=== PATIENT | female | born 1930 | race Caucasian/White ===

== ENCOUNTER 2017-06-23 17:54 | Emergency (ER) | payer OTHER, MEDICARE ==
[2017-06-23 18:05] VITALS: PULSE 69; TEMP 97.5; BMI 32.1
[2017-06-23 18:45] LABS: BASOPHIL 0.8 % (0-2.0); MCH 31.6 pg (25.7-33.7); MEAN CELL VOLUME 93.1 fl (80-96); NEUTROPHILS 70.6 % (42.8-82.8); PLATELET COUNT 150 K/MM3 (134-434); WHITE BLOOD COUNT 5.2 K/mm3 (4.0-10.0)
--- NOTE | 2017-06-23 18:55 | PDOC ---
History of Present Illness - General Chief Complaint: Blood Pressure Problem Stated Complaint: BP PROBLEM Time Seen by Provider: 06/23/17 18:01 History Source: Patient Exam Limitations: No Limitations - History of Present Illness Initial Comments: 86yo F with PMH of htn, hypercholesterolemia, MVP, presents c/o elevated blood pressure. Pt is active, and was out bowling today. Pt ate ham and cheese on her salad for lunch today, and possibly attributes her elevated blood pressure to this unusual salt intake. Pt c/o feeling thirsty, nauseous (sans vomiting), weak, and dizzy when leaning forward. These symptoms began at 1:30 this afternoon when her blood pressure measured 153/90. Pt called her PCP (Dr. Ureña) who told her to take her prn medication Toprol. Pt continued to monitor her blood pressure: 166/97 at 4:35pm and 187/101 at 5:15pm prompting her to come to the ER. Pt was admitted for similar symptoms in December 2014. Pt now c/o of a burning sensation, intrathoracic inferior to Right breast. PCP: Dr. Tierra Ureña 06/23/17 18:48 Associated Symptoms: reports: chest pain, nausea/vomiting, weakness. denies: cough, diaphoresis, fever/chills, headaches, rash, shortness of breath, syncope Past History - Past Medical History Allergies/Adverse Reactions: Allergies Allergy/AdvReac Type Severity Reaction Status Date / Time levofloxacin [From Levaquin] Allergy Severe Hives Verified 06/23/17 18:05 meperidine HCl [From Demerol] Allergy Severe Hives Verified 06/23/17 18:05 Sulfa (Sulfonamide Allergy Severe Hives Verified 06/23/17 18:05 Antibiotics) [Sulfa(Sulfonamide Antibiotics)] Home Medications: Ambulatory Orders Psyllium Seed [Metamucil] 1 each PO BID #0 packet 07/17/12 Atorvastatin Calcium [Lipitor] 10 mg PO DAILY 09/04/12 Ca Cmb No.1/Vit D3/B-6/FA/B12 [Vitamin D3 1,000 Unit Tablet] 1 each PO DAILY 12/12 Multivitamin [Multivitamins] 1 each PO DAILY 09/04/12 Brimonidine Tartrate/Timolol [Combigan 0.2%-0.5% Eye Drops] 1 gtt OU HS #0 04/ 03/15 Losartan Potassium [Cozaar -] 100 mg PO DAILY #0 01/03/15 Losartan Potassium [Cozaar -] 100 mg PO DAILY #30 tablet 01/03/15 Anemia: No Asthma: No Cancer: No Cardiac Disorders: Yes (MVP) CVA: No COPD: No CHF: No Dementia: No Diabetes: No GI Disorders: Yes (HX.COLON POLYPS) Disorders: No HTN: Yes Hypercholesterolemia: Yes Liver Disease: No Seizures: No Thyroid Disease: No Other medical history: arthritis, thrombocytopenia, glaucoma - Surgical History Abdominal Surgery: No Appendectomy: No Cardiac Surgery: No Cholecystectomy: No Lung Surgery: No Neurologic Surgery: No Orthopedic Surgery: No - Immunization History Immunization Up to Date: Yes - Suicide/Smoking/Psychosocial Hx Smoking History: Never smoked Have you smoked in the past 12 months: No Information on smoking cessation initiated: No Hx Alcohol Use: No Drug/Substance Use Hx: No Substance Use Type: None Hx Substance Use Treatment: No Review of Systems - Review of Systems Constitutional: Yes: Chills. No: Diaphoresis, Fever HEENTM: No: Recent change in vision, Ear Pain, Nose Pain, Nose Congestion, Throat Pain Respiratory: No: Cough, Shortness of Breath, Stridor, Wheezing, Productive cough , Hemoptysis Cardiac (ROS): Yes: Chest Pain (burning sensation, intrathoracic inferior to Right breast). No: Edema, Irregular Heart Rate, Palpitations, Syncope, Chest Tightness ABD/GI: Yes: Nausea. No: Abdominal Distended, Constipated, Diarrhea, Vomiting, Abdominal cramping : No: Burning, Dysuria, Hematuria Musculoskeletal: Yes: Joint Pain (arthritis). No: Neck Pain Integumentary: No: Erythema, Pallor, Rash Neurological: Yes: Weakness, Dizziness (when leaning forward). No: Headache, Numbness, Paresthesia Hematologic/Lymphatic: No: Easy Bleeding, Easy Bruising *Physical Exam - Vital Signs Last Vital Signs Temp Pulse Resp BP Pulse Ox 97.5 F L 69 18 168/78 98 06/23/17 18:03 06/23/17 18:03 06/23/17 18:03 06/23/17 18:03 06/23/17 18:03 - Physical Exam General Appearance: Yes: Nourished, Appropriately Dressed. No: Apparent Distress HEENT: positive: EOMI, Other (moist mucous membranes). negative: Pale Conjunctivae, Scleral Icterus (R), Scleral Icterus (L), Nasal Congestion, Rhinorrhea Neck: positive: Trachea midline, Supple Respiratory/Chest: positive: Lungs Clear, Normal Breath Sounds. negative: Respiratory Distress, Accessory Muscle Use Cardiovascular: positive: Regular Rhythm, Regular Rate, S1, S2. negative: Murmur Gastrointestinal/Abdominal: positive: Soft. negative: Distended, Guarding, Rebound, Tenderness Musculoskeletal: positive: Normal Inspection. negative: Decreased Range of Motion Extremity: positive: Normal Inspection. negative: Swelling, Calf Tenderness, Erythema Integumentary: positive: Normal Color, Dry, Warm Neurologic: positive: Fully Oriented, Alert, Normal Mood/Affect, Normal Response , Motor Strength 02/04 ED Treatment Course - LABORATORY CBC & Chemistry Diagram: 06/23/17 18:40 06/23/17 18:40 - ADDITIONAL ORDERS Additional order review: 06/23/17 18:40 RBC 4.04 MCV 93.1 MCHC 34.0 RDW 14.0 MPV 8.0 Neutrophils % 70.6 D Lymphocytes % 20.0 D Monocytes % 6.6 Eosinophils % 2.0 Basophils % 0.8 Medical Decision Making - Medical Decision Making 86yo F with PMH of htn, hypercholesterolemia, MVP, presents c/o elevated blood pressure. Other pertinent symptoms: nausea, weakness, dizziness when leaning forward, burning sensation in Right lower chest. Physical exam unremarkable. CBC with diff, CMP, troponin, INR EKG 06/23/17 19:08 06/23/17 19:26 EKG -> NSR CBC with diff -> wnl CMP -> unremarkable troponin (-) INR/PT -> wnl Heart Score = 3. 06/23/17 22:05 2nd trop (-) Blood pressure 130/79. Pt feeling better and can go home. *DC/Admit/Observation/Transfer Diagnosis at time of Disposition: Dizziness, Hypertension, Nausea - Discharge Dispostion Disposition: HOME Condition at time of disposition: Improved Admit: No - Referrals Referrals: Tierra Ureña MD [Primary Care Provider] - - Patient Instructions Printed Discharge Instructions: DI for High Blood Pressure Additional Instructions: Please follow-up with Dr. Ureña to adjust your blood pressure medications to work for you. Please return to the hospital for persistent or worsening dizziness, lightheadedness, nausea, or for any other medical emergency (such as chest pain , palpitations, difficulty breathing).
[2017-06-23 19:11] LABS: ALBUMIN 3.7 g/dl (3.4-5.0); ANION GAP 11 (8-16); CALCIUM 9.3 mg/dL (8.5-10.1); CO2 24 mmol/L (21-32); CREATININE 0.9 mg/dL (0.55-1.02); GLUCOSE,RANDOM 109 mg/dL (74-106); SGOT/AST 18 U/L (15-37); SGPT/ALT 21 U/L (12-78)
[2017-06-23 19:16] LABS: ALK PHOS 75 U/L (45-117); BILIRUBIN,TOTAL 0.7 mg/dL (0.2-1.0); CPK 75 IU/L (26-192); TOT PROT 6.6 g/dl (6.4-8.2); TROPONIN I < 0.02 ng/ml (0.00-0.05)
[2017-06-23] MEDS ORDERED: FAMOTIDINE 20 MG/50 ML IVPB 50 ML IVPB ONE ×2 (20:12→20:26)
--- NOTE | 2017-06-23 20:14 | PDOC ---
Attending Attestation - Resident Resident Name: BhardwajNiranjana - ED Attending Attestation I have performed the following: I have examined & evaluated the patient, The case was reviewed & discussed with the resident, I agree w/resident's findings & plan, Exceptions are as noted - HPI HPI: 06/23/17 20:10 86 F with h/o HTN on losartan and toprol PRN presents to ER with elevated BP. Pt states that she began to feel a little lightheaded this afternoon, which often occurs in the context of elevated BP. Pt checked her BP and found it to be around 160 systolic. She called her PMD, who instructed her to take her PRN toprol, which she took. When she rechecked it, she found it to be higher at 180 systolic, so she decided to come to the ER. Pt denies any chest pain/SOB. She states that her lightheadedness occurs intermittently and is often an indicator that her BP is high. Denies room-spinning sensation. Denies weakness/numbness/ tingling. Denies MARQUEZ/N/V. Pt endorses mild epigastric burning that she states started about 2 hours ago. Denies diarrhea/constipation. Denies F/C. - Physicial Exam PE: 06/23/17 20:12 "GENERAL: Awake, alert, and fully oriented, in no acute distress HEAD: No signs of trauma EYES: PERRLA, EOMI, sclera anicteric, conjunctiva clear ENT: Auricles normal inspection, hearing grossly normal, nares patent, oropharynx clear without exudates. Moist mucosa NECK: Nontender, no stepoffs, Normal ROM, supple, no lymphadenopathy, JVD, or masses LUNGS: Breath sounds equal, clear to auscultation bilaterally. No wheezes, and no crackles HEART: Regular rate and rhythm, normal S1 and S2, no murmurs, rubs or gallops ABDOMEN: Soft, nontender, normoactive bowel sounds. No guarding, no rebound. No masses EXTREMITIES: Normal range of motion, no edema. No clubbing or cyanosis. No cords, erythema, or tenderness NEUROLOGICAL: Cranial nerves II through XII intact. 5/5 strength and sensation in all extremities, Normal speech, normal gait, cerebellar tests normal SKIN: Warm, Dry, normal turgor, no rashes or lesions noted. " - Medical Decision Making 06/23/17 20:13 86 F with lightheadedness and elevated BP. BP in ER now 150s systolic. Pt with non-focal neuro exam, making acute stroke unlikely. Pt with normal EKG, making ACS unlikely. Given epigastric burning, will cycle trops given pt's age. - Labs, trop - pepcid - reassess 06/23/17 22:30 Labs negative, trop negative x2 Orthostatics taken, 130 systolic lying down, 150 systolic standing. Pt with resolution of lightheadedness. BP now wnl. Pt ambulatory with stable gait, asymptomatic. Pt stable for DC. Heart Score/ECG Review - History History: Slightly suspicious - Electrocardiogram EKG: Normal - Age Age: >/= 65 - Risk Factors Risk Factors Heart Score: Yes Hx Hypertension Based on the list above the patient has:: 1-2 risk factors - Troponin Troponin: </= normal limit - Score Heart Score - Total: 3 - ECG Impressions Comment:: 06/23/17 20:14 NSR, no YURIDIA/STDs, no TWIs, normal intervals, normal axis
[2017-06-23] MEDS ORDERED: SODIUM CHLORIDE 500 ML IV STA (20:47)
[2017-06-23 21:32] LABS: CPK 93 IU/L (26-192); TROPONIN I < 0.02 ng/ml (0.00-0.05)
[2017-06-23 21:55] VITALS: BP 130/79
--- NOTE | 2017-06-24 09:15 | EKG ---
Test Reason : Blood Pressure : / mmHG Vent. Rate : 060 BPM Atrial Rate : 060 BPM P-R Int : 138 ms QRS Dur : 090 ms QT Int : 428 ms P-R-T Axes : 055 012 050 degrees QTc Int : 428 ms NORMAL SINUS RHYTHM NORMAL ECG WHEN COMPARED WITH ECG OF 23-JUN-2017 19:10, NO SIGNIFICANT CHANGE WAS FOUND Confirmed by LINDA DELGADO MD ([id number]) on 06/24/2017 9:15:07 AM Referred By: Confirmed By:LINDA DELGADO MD
== END 2017-06-23 22:40 | disposition home or self-care (01) ==
LOC: JER 17:54
PROC: 3E0337Z Introduction of Electrolytic and Water Balance Substance into Peripheral Vein, Percutaneous Approach (ICD-10-PCS; principal; 2017-06-23)
PROC: 3E033GC Introduction of Other Therapeutic Substance into Peripheral Vein, Percutaneous Approach (ICD-10-PCS; 2017-06-23)
DX: I10 Essential (primary) hypertension (principal); E78.00 Pure hypercholesterolemia, unspecified
CPT/HCPCS: 36415; 80053; 84484; 85025; 85610; 93005; 93010; 99285-25

== ENCOUNTER → 2018-01-16 | Day surgery (SDC) | payer OTHER, MEDICARE ==
--- NOTE | 2018-01-17 15:35 | PATH ---
Surgical Pathology Report Patient Name: FRANCA LARSON [facility]. Rec. #: [id number] /Age/Gender: 1930 (Age: 87) / F Account: [id number] Location: [facility] Taken: 01/16/2018 Received: 01/16/2018 Reported: 01/17/2018 Physicians: Dean Ruiz M.D. Specimen(s) Received RIGHT 9:30 BREAST CORE BIOPSY Clinical History Nonpalpable lesion Ultrasound findings: Suspicious Final Diagnosis RIGHT BREAST, 9:30, ULTRASOUND GUIDED NEEDLE CORE BIOPSY: FIBROCYSTIC CHANGES INCLUDING STROMAL FIBROSIS AND SCLEROSIS, AND DUCTAL DILATATION. Electronically Signed Rafael Quintana M.D. Gross Description Received in formalin labeled "right 9:30," is a 0.9 x 0.8 x 0.1 cm aggregate of multiple hunt-yellow, irregular to cylindrical portions of fibroadipose tissue. The formalin is filtered and the specimen is entirely submitted in one cassette. Total formalin fixation time: Approximately 8 hours /01/16/2018/01/16/2018
== END | disposition home or self-care (01) ==
LOC: JRADUS-SUR 10:08
PROVIDERS: ATTEND Internal Medicine
PROC: 0HBT3ZX Excision of Right Breast, Percutaneous Approach, Diagnostic (ICD-10-PCS; principal; 2018-01-16)
DX: N60.11 Diffuse cystic mastopathy of right breast (principal); N60.21 Fibroadenosis of right breast
CPT/HCPCS: 19083; 77065-TC; 87899; 88305-TC; A4648

== ENCOUNTER 2018-01-17 20:45 | Emergency (ER) | payer OTHER, MEDICARE ==
[2018-01-17 21:03] VITALS: TEMP 97.2; BMI 24.4
[2018-01-17] MEDS ORDERED: hydrALAZINE HCL 20 MG/ML VIAL IVPUSH ONE (21:11)
--- NOTE | 2018-01-17 21:11 | PDOC ---
History of Present Illness - General History Source: Patient Exam Limitations: No Limitations - History of Present Illness Initial Comments: 01/17/18 21:15 The patient is an 87 year old female with a significant PMH of HTN who presents to the emergency department for evaluation of elevated blood pressure. The patient states she has noticed her blood pressure has been fluctuating more than usual over the past day. She reports she feels fuzzy. She reports calling the on-call doctor Dr. Granger, who informed her to take 100mg of Toprol. She reports compliance with her HTN medications. The patient denies any pain at presentation. She denies chest pain or shortness of breath. She denies headache or dizziness. Denies fever, chills, nausea, vomit, diarrhea and constipation. Denies dysuria, frequency, urgency and hematuria. Allergies: Levofloxacin, Meperidine HCl, Sulfonamide antibiotics. Past surgical history: None reported. Social history: No reported cigarette, alcohol, or drug use. PCP: Dr. Ureña <Jonas Hernandez - Last Filed: 01/17/18 21:15> - General History Source: Patient <Uli Xiong - Last Filed: 01/18/18 01:55> - General Chief Complaint: Blood Pressure Problem Stated Complaint: BP PROBLEM Time Seen by Provider: 01/17/18 21:01 Past History <Jonas Hernandez - Last Filed: 01/17/18 21:15> - Past Medical History Anemia: No Asthma: No Cancer: No Cardiac Disorders: Yes (MVP) CVA: No COPD: No CHF: No Dementia: No Diabetes: No GI Disorders: Yes (HX.COLON POLYPS) Disorders: No HTN: Yes Hypercholesterolemia: Yes Liver Disease: No Seizures: No Thyroid Disease: No - Surgical History Abdominal Surgery: No Appendectomy: No Cardiac Surgery: No Cholecystectomy: No Lung Surgery: No Neurologic Surgery: No Orthopedic Surgery: No - Immunization History Immunization Up to Date: Yes - Suicide/Smoking/Psychosocial Hx Smoking History: Never smoked Have you smoked in the past 12 months: No Information on smoking cessation initiated: No Hx Alcohol Use: No Drug/Substance Use Hx: No Substance Use Type: None Hx Substance Use Treatment: No <Uli Xiong - Last Filed: 01/18/18 01:55> - Past Medical History Allergies/Adverse Reactions: Allergies Allergy/AdvReac Type Severity Reaction Status Date / Time levofloxacin [From Levaquin] Allergy Severe Hives Verified 06/23/17 18:05 meperidine HCl [From Demerol] Allergy Severe Hives Verified 06/23/17 18:05 Sulfa (Sulfonamide Allergy Severe Hives Verified 06/23/17 18:05 Antibiotics) [Sulfa(Sulfonamide Antibiotics)] sulfamethoxazole Allergy Severe Hives Verified 01/17/18 22:19 [From Bactrim] trimethoprim [From Bactrim] Allergy Severe Hives Verified 01/17/18 22:19 Home Medications: Ambulatory Orders Amlodipine Besylate 5 mg PO DAILY 01/17/18 Atorvastatin Ca [Lipitor] 10 mg PO HS 01/17/18 Bimatoprost [Lumigan] 1 drop IO DAILY 01/17/18 Losartan Potassium 100 mg PO DAILY 01/17/18 Meclizine HCl 25 mg PRN 01/17/18 Metoprolol Succinate 25 mg PO PRN 01/17/18 Review of Systems - Review of Systems Able to Perform ROS?: Yes Comments:: 01/17/18 21:15 CONSTITUTIONAL: (+) Fluctuating blood pressure. Absent: fever, chills, diaphoresis, generalized weakness, malaise, loss of appetite HEENT: Absent: rhinorrhea, nasal congestion, throat pain, throat swelling, difficulty swallowing, mouth swelling, ear pain, eye pain, visual Changes CARDIOVASCULAR: Absent: chest pain, syncope, palpitations, irregular heart rate, lightheadedness , peripheral edema RESPIRATORY: Absent: cough, shortness of breath, dyspnea with exertion, orthopnea, wheezing, stridor, hemoptysis GASTROINTESTINAL: Absent: abdominal pain, abdominal distension, nausea, vomiting, diarrhea, constipation, melena, hematochezia GENITOURINARY: Absent: dysuria, frequency, urgency, hesitancy, hematuria, flank pain, genital pain MUSCULOSKELETAL: Absent: myalgia, arthralgia, joint swelling SKIN: Absent: rash, itching, pallor HEMATOLOGIC/IMMUNOLOGIC: Absent: easy bleeding, easy bruising, lymphadenopathy, frequent infections ENDOCRINE: Absent: unexplained weight gain, unexplained weight loss, heat intolerance, cold intolerance NEUROLOGIC: Absent: headache, focal weakness or paresthesias, dizziness, unsteady gait, seizure, mental status changes, bladder or bowel incontinence PSYCHIATRIC: Absent: anxiety, depression, suicidal or homicidal ideation, hallucinations. <Hernandez,Jonas - Last Filed: 01/17/18 21:15> *Physical Exam - Vital Signs Last Vital Signs Temp Pulse Resp BP Pulse Ox 97.2 F L 75 17 164/72 98 01/17/18 20:58 01/17/18 20:58 01/17/18 20:58 01/17/18 20:58 01/17/18 20:58 - Physical Exam Comments: 01/17/18 21:16 GENERAL: Well developed, well nourished. Awake and alert. No acute distress. HEENT: Normocephalic, atraumatic. PERRLA, EOMI. No conjunctival pallor. Sclera are non- icteric. Moist mucous membranes. Oropharynx is clear. NECK: Supple. Full ROM. No JVD. Carotid pulses 2+ and symmetric, without bruits. No thyromegaly. No lymphadenopathy. CARDIOVASCULAR: Regular rate and rhythm. No murmurs, rubs, or gallops. Distal pulses are 2+ and symmetric. PULMONARY: No evidence of respiratory distress. Lungs clear to auscultation bilaterally. No wheezing, rales or rhonchi. ABDOMINAL: Soft. Non-tender. Non-distended. No rebound or guarding. No organomegaly. Normoactive bowel sounds. MUSCULOSKELETAL Normal range of motion at all joints. No bony deformities or tenderness. No CVA tenderness. EXTREMITIES: No cyanosis. No clubbing. No edema. No calf tenderness. SKIN: Warm and dry. Normal capillary refill. No rashes. No jaundice. NEUROLOGICAL: Alert, awake, appropriate. Cranial nerves 2-12 intact. No deficits to light touch and temperature in face, upper extremities and lower extremities. No motor deficits in the in face, upper extremities and lower extremities. Normoreflexic in the upper and lower extremities. Normal speech. Toes are downgoing bilaterally. Gait is normal without ataxia. PSYCHIATRIC: Cooperative. Good eye contact. Appropriate mood and affect. <Jonas Hernandez - Last Filed: 01/17/18 21:15> - Vital Signs Last Vital Signs Temp Pulse Resp BP Pulse Ox 97.2 F L 75 17 164/72 98 01/17/18 20:58 01/17/18 20:58 01/17/18 20:58 01/17/18 20:58 01/17/18 20:58 <Sinisterra,Uli - Last Filed: 01/18/18 01:55> Heart Score/ECG Review #1 01/17/18 21:16 EKG done at 20:53 Vent rate 71 bpm Normal sinus rhythm Possible left atrial enlargement Borderline ECG <Jonas Hernandez - Last Filed: 01/17/18 21:15> ED Treatment Course - LABORATORY CBC & Chemistry Diagram: 01/17/18 21:58 01/17/18 23:25 <Uli Xiong - Last Filed: 01/18/18 01:55> Medical Decision Making - Medical Decision Making 01/18/18 01:53 BP 130/ 70. p[t feeling better. Will discharged and have pt follow up with her. pcp Dr. Xiong: The scribe's documentation has been prepared under my direction and personally reviewed by me in its entirery. I confirm that the note above accurately reflects all work, treatment, procedures, and medical decision making performed by me. <Uli Xiong - Last Filed: 01/18/18 01:55> *DC/Admit/Observation/Transfer - Attestations Scribe Attestion: 01/17/18 21:16 Documentation prepared by Jonas Hernandez, acting as medical interpreter for Uli Xiong DO. <Jonas Hernandez - Last Filed: 01/17/18 21:15> - Discharge Dispostion Admit: No <Uli Xiong - Last Filed: 01/18/18 01:55> Diagnosis at time of Disposition: Hypertension - Discharge Dispostion Disposition: HOME Condition at time of disposition: Stable - Referrals Referrals: Tierra Ureña MD [Primary Care Provider] - - Patient Instructions Printed Discharge Instructions: How to Monitor Your Blood Pressure at Home, DI for High Blood Pressure Additional Instructions: Please follow up with your doctor to discharge how to control your blood pressure better, Retrun if any problems. - Post Discharge Activity
[2018-01-17] MEDS ORDERED: hydrALAZINE HCL 20 MG/ML VIAL ONE (21:39)
[2018-01-17 22:02] LABS: BASO % 0.6 % (0-2.0); EOS % 1.2 % (0-4.5); HEMOGLOBIN 13.7 GM/dL (10.7-15.3); MCH 32.1 pg (25.7-33.7); MCHC 34.3 g/dl (32.0-36.0); MEAN CELL VOLUME 93.5 fl (80-96); MEAN PLT VOLUME 8.2 fl (7.5-11.1); MONO % 5.4 % (3.8-10.2); NEUT % 73.8 % (42.8-82.8); PLATELET COUNT 145 K/MM3 (134-434); RBC 4.28 M/mm3 (3.60-5.2); RDW 14.3 % (11.6-15.6); WHITE BLOOD COUNT 5.7 K/mm3 (4.0-10.0)
[2018-01-17 22:21] LABS: PROTHROMBIN TIME (PATIENT) 11.3 SEC (9.98-11.88)
[2018-01-18 00:35] LABS: ANION GAP 10 (8-16); BILIRUBIN,TOTAL 0.9 mg/dL (0.2-1.0); BLOOD UREA NITROGEN 13 mg/dL (7-18); CALCIUM 9.7 mg/dL (8.5-10.1); CHLORIDE 105 mmol/L (98-107); CO2 24 mmol/L (21-32); CREATININE 0.9 mg/dL (0.55-1.02); GLUCOSE,RANDOM 100 mg/dL (74-106); POTASSIUM 3.7 mmol/L (3.5-5.1); SGOT/AST 20 U/L (15-37); SGPT/ALT 19 U/L (12-78); SODIUM 139 mmol/L (136-145); TOT PROT 7.3 g/dl (6.4-8.2)
[2018-01-18 00:38] LABS: ALK PHOS 88 U/L (45-117)
[2018-01-18 01:56] VITALS: BP 137/77; PULSE 88
--- NOTE | 2018-01-18 11:43 | EKG ---
Test Reason : Blood Pressure : / mmHG Vent. Rate : 071 BPM Atrial Rate : 071 BPM P-R Int : 132 ms QRS Dur : 088 ms QT Int : 398 ms P-R-T Axes : 055 -22 054 degrees QTc Int : 432 ms NORMAL SINUS RHYTHM POSSIBLE LEFT ATRIAL ENLARGEMENT BORDERLINE ECG WHEN COMPARED WITH ECG OF 23-JUN-2017 19:10, NO SIGNIFICANT CHANGE WAS FOUND Confirmed by ELVER BARAJAS, GABE ([id number]) on 01/18/2018 11:42:39 AM Referred By: Confirmed By:GABE RAYA MD
== END 2018-01-18 02:05 | disposition home or self-care (01) ==
LOC: JER 20:45
DX: I10 Essential (primary) hypertension (principal); E78.00 Pure hypercholesterolemia, unspecified; I34.1 Nonrheumatic mitral (valve) prolapse; Z87.19 Personal history of other diseases of the digestive system; Z86.010 Personal history of colon polyps
CPT/HCPCS: 36415; 80053; 82550; 84484; 85025; 85610; 93005; 93010; 99283-25

== ENCOUNTER 2018-02-09 22:01 | Observation (INO) | payer OTHER, MEDICARE ==
[2018-02-09 22:34] VITALS: BMI 26.4
--- NOTE | 2018-02-09 22:41 | PDOC ---
Attending Attestation - HPI HPI: 02/09/18 22:55 The patient is an 87 year old female with a significant PMH of HTN, vertigo, and hyperlipidemia who presents to the emergency department for evaluation of high blood pressure and dizziness. She reports her blood pressure was measured 190/110 prior to arrival. She also notes an episode of dizziness earlier today after walking for about 5-10 minutes, feeling as though she was swaying. She notes this sensation did not feel like previous vertigo. Allergies: Levofloxacin, Meperidine HCl, Sulfonamide antibiotics, Sulfamethoxazole, Trimethoprim. PCP: Dr. Ureña <Jonas Hernandez - Last Filed: 02/09/18 22:55> - Resident Resident Name: Juan Watson - ED Attending Attestation I have performed the following: I have examined & evaluated the patient, The case was reviewed & discussed with the resident, I agree w/resident's findings & plan, Exceptions are as noted - Physicial Exam PE: 02/10/18 00:16 Physical Exam General Appearance: Yes: Appropriately Dressed. No: Apparent Distress, Intoxicated HEENT: positive: EOMI, ALFRED, Normal ENT Inspection, Normal Voice, TMs Normal, Pharynx Normal. negative: Pale Conjunctivae, Photophobia, Scleral Icterus (R), Scleral Icterus (L) Neck: positive: Trachea midline, Normal Thyroid, Supple. negative: Tender, Rigid, Carotid bruit, Stridor, Lymphadenopathy (R), Lymphadenopathy (L), Thyromegaly Respiratory/Chest: positive: Lungs Clear, Normal Breath Sounds. negative: Chest Tender, Respiratory Distress, Accessory Muscle Use, Labored Respiration, RES, Crackles, Rales, Rhonchi, Stridor, Wheezing, Dullness Cardiovascular: positive: Regular Rhythm, Regular Rate, S1, S2. negative: Edema , JVD, Murmur, Bradycardia, Tachycardia Vascular Pulses: Dorsalis-Pedis (R): 2+, Doralis-Pedis (L): 2+ Gastrointestinal/Abdominal: positive: Normal Bowel Sounds, Flat, Soft. negative : Tender, Organomegaly, Pulsatile Mass, Increased Bowel Sounds, Decreased BS, Distended, Guarding, Rebound, Hernia, Hepatomegaly, Spleenomegaly Lymphatic: negative: Adenopathy, Tenderness Musculoskeletal: positive: Normal Inspection. negative: CVA Tenderness, Decreased Range of Motion Extremity: positive: Normal Capillary Refill, Normal Inspection, Normal Range of Motion, Pelvis Stable. negative: Tender, Pedal Edema, Swelling, Erythema Integumentary: positive: Normal Color, Dry, Warm. negative: Cyanotic, Erythema , Jaundice, Rash Neurologic: positive: wooden furniture polisher II-XII NML intact, Fully Oriented, Alert, Normal Mood/ Affect, Motor Strength 5/5. negative: EOM Palsy, Facial Droop, Sensory Deficit - Medical Decision Making 02/14/18 19:56 Pt was admitted for further evaluation and care. <Uli Xiong - Last Filed: 02/14/18 19:56>
[2018-02-09 23:24] LABS: URINE APPEARANCE TURBID; URINE BILIRUBIN NEGATIVE (<2.0 mg/dL); URINE COLOR YELLOW; URINE GLUCOSE (UA) NEGATIVE (NEGATIVE); URINE KETONE NEGATIVE (NEGATIVE); URINE LEUK ESTERASE NEGATIVE (NEGATIVE); URINE NITRITE NEGATIVE (NEGATIVE); URINE UROBILINOGEN 4.0 E.U/dl mg/dL (0.2-1.0)
[2018-02-09 23:26] LABS: URINE PROTEIN 1+ (NEGATIVE)
[2018-02-09 23:35] LABS: BASO % 0.8 % (0-2.0); EOS % 1.6 % (0-4.5); HEMATOCRIT 38.2 % (32.4-45.2); HEMOGLOBIN 13.3 GM/dL (10.7-15.3); LYMPH % 22.2 % (8-40); MCH 32.3 pg (25.7-33.7); MCHC 34.8 g/dl (32.0-36.0); MEAN CELL VOLUME 92.9 fl (80-96); MEAN PLT VOLUME 8.3 fl (7.5-11.1); MONO % 7.3 % (3.8-10.2); NEUT % 68.1 % (42.8-82.8); PLATELET COUNT 147 K/MM3 (134-434); RBC 4.11 M/mm3 (3.60-5.2); WHITE BLOOD COUNT 5.1 K/mm3 (4.0-10.0)
--- NOTE | 2018-02-09 23:37 | PDOC ---
History of Present Illness - General Chief Complaint: Lightheaded Stated Complaint: LIGHTHEADED Time Seen by Provider: 02/09/18 22:19 History Source: Patient Exam Limitations: No Limitations - History of Present Illness Initial Comments: 02/09/18 23:31 Patient is an 87F with history of HTN, HLD here today complaining of being lightheaded. She states that onset was after she had been walking for 5-10 minutes, and that this felt different from her prior episodes of vertigo. She states that she took her blood pressure after this and found it to be 190/110 at home. Patient denies chest pain, shortness of breath, nausea, vomiting, fevers, and chills. Patient denies history of prior stroke. PCP Dr Licona was contacted, patient had recent ECHO that showed no major abnormalities and a carotid doppler that shows minimal atherosclerosis. Onset was at about 5pm. Patient and family denies any slurring, focal weakness, facial drooping. Patient complains of an associated headache of right side of head that was insidious in onset. Past History - Past Medical History Allergies/Adverse Reactions: Allergies Allergy/AdvReac Type Severity Reaction Status Date / Time levofloxacin [From Levaquin] Allergy Severe Hives Verified 02/09/18 22:34 meperidine HCl [From Demerol] Allergy Severe Hives Verified 02/09/18 22:34 Sulfa (Sulfonamide Allergy Severe Hives Verified 02/09/18 22:34 Antibiotics) [Sulfa(Sulfonamide Antibiotics)] sulfamethoxazole Allergy Severe Hives Verified 02/09/18 22:34 [From Bactrim] trimethoprim [From Bactrim] Allergy Severe Hives Verified 02/09/18 22:34 Home Medications: Ambulatory Orders Amlodipine Besylate 5 mg PO DAILY 01/17/18 Atorvastatin Ca [Lipitor] 10 mg PO HS 01/17/18 Bimatoprost [Lumigan] 1 drop IO DAILY 01/17/18 Losartan Potassium 100 mg PO DAILY 01/17/18 Meclizine HCl 25 mg PRN 01/17/18 Metoprolol Succinate 25 mg PO PRN 01/17/18 Anemia: No Asthma: No Cancer: No Cardiac Disorders: Yes (MVP) CVA: No COPD: No CHF: No Dementia: No Diabetes: No GI Disorders: Yes (HX.COLON POLYPS) Disorders: No HTN: Yes Hypercholesterolemia: Yes Liver Disease: No Seizures: No Thyroid Disease: No - Surgical History Abdominal Surgery: No Appendectomy: No Cardiac Surgery: No Cholecystectomy: No Lung Surgery: No Neurologic Surgery: No Orthopedic Surgery: No - Immunization History Immunization Up to Date: Yes - Suicide/Smoking/Psychosocial Hx Smoking History: Never smoked Have you smoked in the past 12 months: No Information on smoking cessation initiated: No Hx Alcohol Use: No Drug/Substance Use Hx: No Substance Use Type: None Hx Substance Use Treatment: No Review of Systems - Review of Systems Comments:: 02/09/18 23:37 GENERAL/CONSTITUTIONAL: No fever or chills. No weakness. HEAD, EYES, EARS, NOSE AND THROAT: No change in vision. No sore throat. CARDIOVASCULAR: No chest pain or shortness of breath RESPIRATORY: No cough, wheezing, or hemoptysis. GASTROINTESTINAL: No nausea, vomiting, diarrhea or constipation. GENITOURINARY: No dysuria, frequency, or change in urination. MUSCULOSKELETAL: No joint or muscle swelling or pain. No neck or back pain. SKIN: No rash NEUROLOGIC: Positive for headache and vertigo. No loss of consciousness, or change in strength/sensation. ENDOCRINE: No increased thirst. No abnormal weight change HEMATOLOGIC/LYMPHATIC: No anemia, easy bleeding, or history of blood clots. ALLERGIC/IMMUNOLOGIC: No hives or skin allergy. *Physical Exam - Vital Signs Last Vital Signs Temp Pulse Resp BP Pulse Ox 97.9 F 64 18 153/99 99 02/09/18 22:27 02/09/18 22:27 02/09/18 22:27 02/09/18 22:27 02/09/18 22:27 - Physical Exam Comments: 02/09/18 23:38 GENERAL: Awake, alert, and fully oriented, in no acute distress HEAD: No signs of trauma, normocephalic, atraumatic EYES: PERRLA, EOMI, sclera anicteric, conjunctiva clear ENT: Auricles normal inspection, hearing grossly normal, nares patent, oropharynx clear without exudates. Moist mucosa NECK: Normal ROM, supple, no lymphadenopathy, JVD, or masses LUNGS: No distress, speaks full sentences, clear to auscultation bilaterally HEART: Regular rate and rhythm, normal S1 and S2, no murmurs, rubs or gallops, peripheral pulses normal and equal bilaterally. ABDOMEN: Soft, nontender, normoactive bowel sounds. No guarding, no rebound. No masses EXTREMITIES: Normal inspection, Normal range of motion, no edema. No clubbing or cyanosis. NEUROLOGICAL: Cranial nerves II through XII grossly intact. Normal speech, unsteady gait, +romberg, NIHSS 0 SKIN: Warm, Dry, normal turgor, no rashes or lesions noted. NIH Stroke Scale - Last Known Well Date/Time & Onset Date Last Known Well: 02/09/18 Time Last Known Well: 17:00 - Initial Evaluation Level of consciousness: Alert Ask patient the month and their age: Answers both correctly Ask patient to open & close eyes; make fist and let go: Obeys both correctly Best gaze (horizontal eye movement): Normal Visual field testing: No visual field loss Facial paresis (Show teeth/raise eyebrows/close eyes tight): Normal symmetrical movement Motor Function: Left Arm: Normal Motor Function: Right Arm: Normal (extends arm 90 (or 45) degrees for 10 seconds without drift Motor Function: Left Leg: Normal (extends leg 30 degrees for 5 seconds without drift) Motor Function: Right Leg: Normal (extends leg 30 degrees for 5 seconds without drift) Limb Ataxia: No ataxia Sensory(Use pinprick test arms,legs,trunk,face/side to side): Normal Best language (Describe picture, name items, read sentences): No Aphasia Dysarthria (read several words): Normal articulation Extinction and Inattention: No abnormality - Total Score NIH Stroke Scale Score: 0 Critical Care Time/[facility] Note - Medical Decision Making Note: 02/09/18 23:39 Patient is 87F with history of HTN, HLD, vertigo here today complaining of lightheadedness. Vital signs stable and normal. NIHSS 0. Neuro exam concerning for unsteady gait and positive romberg. Orthostatics done, no changes. Will evaluate with cbc, cmp, ekg, cxr, trop, ct head. Will admit for MRI of brain. 02/10/18 00:24 CXR shows no acute cardiopulmonary process. 02/10/18 00:26 Laboratory Tests 02/09/18 23:10 Troponin I < 0.02 CBC, CMP, PT/INR reassuring. Troponin undetectable. EKG, official head CT reading pending. 02/10/18 06:[address] negative. Discharge Disposition - Diagnosis Dizziness - Discharge Dispostion Condition at time of disposition: Stable Decision to Admit order: Yes - Referrals - Patient Instructions - Post Discharge Activity
[2018-02-09 23:38] LABS: EPI CELLS RARE /HPF (FEW); URINE MUCUS RARE
[2018-02-09 23:47] LABS: INR 0.94 (0.82-1.09); PROTHROMBIN TIME (PATIENT) 10.6 SEC (9.7-13.0)
[2018-02-09 23:55] LABS: URINE HYALINE CAST 14 /lpf
[2018-02-09 23:59] LABS: ALBUMIN 4.1 g/dl (3.4-5.0); ANION GAP 12 (8-16); BILIRUBIN,TOTAL 0.4 mg/dL (0.2-1.0); BLOOD UREA NITROGEN 23 mg/dL (7-18); CALCIUM 9.8 mg/dL (8.5-10.1); CHLORIDE 99 mmol/L (98-107); CO2 26 mmol/L (21-32); CREATININE 1.1 mg/dL (0.55-1.02); GLUCOSE,RANDOM 108 mg/dL (74-106); POTASSIUM 4.3 mmol/L (3.5-5.1); SGOT/AST 20 U/L (15-37); SGPT/ALT 18 U/L (12-78); SODIUM 137 mmol/L (136-145); TOT PROT 6.9 g/dl (6.4-8.2)
[2018-02-10 00:01] LABS: ALK PHOS 89 U/L (45-117)
--- NOTE | 2018-02-10 01:48 | HP ---
CHIEF COMPLAINT: Lightheaded, gait abnormality PCP: Niranjan HISTORY OF PRESENT ILLNESS: This is a 87 year old female with a past medical history of HTN, HLD, ?MVP, colon polyps, vertigo who presented to the ED after an episode of lightheadedness and unsteady gait at home. She reports that she began having trouble walking and had to hold onto the wall to keep from falling over and then she became lightheaded. The lightheadedness lasted about 15 minutes but she is still having mild unsteady gait with swaying side to side with walking. ER course was notable for: (1) CT head unremarkable (2) labs unremarkable Recent Travel: pt denies PAST MEDICAL HISTORY: HTN, HLD, ?MVP, colon polyps, vertigo PAST SURGICAL HISTORY: appendectomy age 14 bladder and uterus suspension 40-50 years ago B/L breast cyst removal B/L cataract removal Social History: Smoking: pt denies, quit 40 years ago Alcohol: pt denies Drugs: pt denies Family History: uknown Allergies levofloxacin [From Levaquin] Allergy (Severe, Verified 02/09/18 22:34) Hives meperidine HCl [From Demerol] Allergy (Severe, Verified 02/09/18 22:34) Hives Sulfa (Sulfonamide Antibiotics) [Sulfa(Sulfonamide Antibiotics)] Allergy (Severe , Verified 02/09/18 22:34) Hives sulfamethoxazole [From Bactrim] Allergy (Severe, Verified 02/09/18 22:34) Hives trimethoprim [From Bactrim] Allergy (Severe, Verified 02/09/18 22:34) Hives HOME MEDICATIONS: 3 Medication Instructions Recorded Amlodipine Besylate 5 mg PO DAILY 01/17/18 Atorvastatin Ca [Lipitor] 10 mg PO HS 01/17/18 Bimatoprost [Lumigan] 1 drop IO DAILY 01/17/18 Losartan Potassium 100 mg PO DAILY 01/17/18 Meclizine HCl 25 mg PRN 01/17/18 Metoprolol Succinate 25 mg PO PRN 01/17/18 REVIEW OF SYSTEMS CONSTITUTIONAL: Absent: fever, chills, diaphoresis, generalized weakness, malaise, loss of appetite, weight change HEENT: Absent: rhinorrhea, nasal congestion, throat pain, throat swelling, difficulty swallowing, mouth swelling, ear pain, eye pain, visual changes CARDIOVASCULAR: Absent: chest pain, syncope, palpitations, irregular heart rate, peripheral edema RESPIRATORY: Absent: cough, shortness of breath, dyspnea with exertion, orthopnea, wheezing, stridor, hemoptysis GASTROINTESTINAL: Absent: abdominal pain, abdominal distension, nausea, vomiting, diarrhea, constipation, melena, hematochezia GENITOURINARY: Absent: dysuria, frequency, urgency, hesitancy, hematuria, flank pain, genital pain MUSCULOSKELETAL: Absent: myalgia, arthralgia, joint swelling, back pain, neck pain SKIN: Absent: rash, itching, pallor HEMATOLOGIC/IMMUNOLOGIC: Absent: easy bleeding, easy bruising, lymphadenopathy, frequent infections ENDOCRINE: Absent: unexplained weight gain, unexplained weight loss, heat intolerance, cold intolerance NEUROLOGIC: unsteady gait, lightheadedness Absent: headache, focal weakness or paresthesias, dizziness, seizure, mental status changes, bladder or bowel incontinence PSYCHIATRIC: Absent: anxiety, depression, suicidal or homicidal ideation, hallucinations. PHYSICAL EXAMINATION Vital Signs - 24 hr 3 02/09/18 22:27 Temperature 97.9 F Pulse Rate 64 Respiratory 18 Rate Blood Pressure 153/99 O2 Sat by Pulse 99 Oximetry (%) GENERAL: Awake, alert, and fully oriented, in no acute distress. HEAD: Normal with no signs of trauma. EYES: Pupils equal, round and reactive to light, extraocular movements intact, sclera anicteric, conjunctiva clear. No lid lag. EARS, NOSE, THROAT: Ears normal, nares patent, oropharynx clear without exudates. Moist mucous membranes. NECK: Normal range of motion, supple without lymphadenopathy, JVD, or masses. LUNGS: Breath sounds equal, clear to auscultation bilaterally. No wheezes, and no crackles. No accessory muscle use. HEART: Regular rate and rhythm, normal S1 and S2 without murmur, rub or gallop. ABDOMEN: Soft, nontender, not distended, normoactive bowel sounds, no guarding, no rebound, no masses. No hepatomegaly or splenomegaly. MUSCULOSKELETAL: Normal range of motion at all joints. No bony deformities or tenderness. No CVA tenderness. UPPER EXTREMITIES: 2+ pulses, warm, well-perfused. No cyanosis. No clubbing. No peripheral edema. LOWER EXTREMITIES: 2+ pulses, warm, well-perfused. No calf tenderness. No peripheral edema. NEUROLOGICAL: Cranial nerves II-XII intact. Normal speech. unsteady gait. + Romberg PSYCHIATRIC: Cooperative. Good eye contact. Appropriate mood and affect. SKIN: Warm, dry, normal turgor, no rashes or lesions noted, normal capillary refill. Laboratory Results - last 24 hr 3 02/09/18 02/09/18 02/09/18 23:10 23:10 23:10 WBC 5.1 RBC 4.11 Hgb 13.3 Hct 38.2 MCV 92.9 MCH 32.3 MCHC 34.8 RDW 14.0 Plt Count 147 MPV 8.3 Neutrophils % 68.1 Lymphocytes % 22.2 Monocytes % 7.3 Eosinophils % 1.6 Basophils % 0.8 PT with INR 10.60 INR 0.94 Sodium 137 Potassium 4.3 Chloride 99 Carbon Dioxide 26 Anion Gap 12 BUN 23 H Creatinine 1.1 H Creat Clearance w eGFR 46.88 Random Glucose 108 H Calcium 9.8 Total Bilirubin 0.4 D AST 20 ALT 18 Alkaline Phosphatase 89 Creatine Kinase 95 Troponin I < 0.02 Total Protein 6.9 Albumin 4.1 Urine Color Urine Appearance Urine pH Ur Specific [place] Urine Protein Urine Glucose (UA) Urine Ketones Urine Blood Urine Nitrite Urine Bilirubin Urine Urobilinogen Ur Leukocyte Esterase Urine WBC (Auto) Urine RBC (Auto) Ur Epithelial Cells Hyaline Casts Urine Mucus 3 Urine Color Yellow 02/09/18 23:20 Urine Appearance Turbid 02/09/18 23:20 Urine pH 5.0 (5.0-8.0) 02/09/18 23:20 Ur Specific [place] 1.028 (1.001-1.035) 02/09/18 23:20 Urine Protein 1+ (NEGATIVE) H 02/09/18 23:20 Urine Glucose (UA) Negative (NEGATIVE) 02/09/18 23:20 Urine Ketones Negative (NEGATIVE) 02/09/18 23:20 Urine Blood Negative (NEGATIVE) 02/09/18 23:20 Urine Nitrite Negative (NEGATIVE) 02/09/18 23:20 Urine Bilirubin Negative (<2.0 mg/dL) 02/09/18 23:20 Urine Urobilinogen 4.0 e.u/dl H 02/09/18 23:20 Ur Leukocyte Esterase Negative (NEGATIVE) 02/09/18 23:20 Urine WBC (Auto) 2 05/10/18 23:20 Urine RBC (Auto) 6 02/09/18 23:20 Ur Epithelial Cells Rare /HPF (FEW) 02/09/18 23:20 Hyaline Casts 14 02/09/18 23:20 Urine Mucus Rare 02/09/18 23:[address] head THIS IS A PRELIMINARY REPORT FROM IMAGING ENT PHYSICIAN FINDINGS: Age-appropriate involutional changes. No hemorrhage. No mass. No obvious infarct. Osseous structures are intact. THIS DOCUMENT HAS BEEN ELECTRONICALLY SIGNED Randall Salinas MD 02/10/2018 00:42 EST ECG Sinus bradycardia Vent rate 55, QTC [address]/T wave changes ASSESSMENT/PLAN: 87yF wtih PMH HTN, HLD, ?MVP, colon polyps, vertigo presented to the ED with lightheadedness and unsteady gait. unsteady gait and lightheadedness - CT head prelim read unremarkable - MRI ordered - neurology consult - monitor on tele - trend troponin to r/o ACS, though unlikely HTN/HLD - cont home meds DVT PPX - deferred, expected LOS less than 48, encouraged ambulation FEN - tolerating po - bmp in am - low sodium diet as tolerated Dispo: pt currently requires further observation for management of her emergent condition. Visit type - Emergency Visit Emergency Visit: Yes ED Registration Date: 02/09/18 Care time: The patient presented to the Emergency Department on the above date and was hospitalized for further evaluation of their emergent condition. - New Patient This patient is new to me today: Yes Date on this admission: 02/10/18 - Critical Care Critical Care patient: No Hospitalist Screening - Colonoscopy Questionnaire Colonoscopy Questionnaire: Colonoscopy Questionnaire - Patient: 50 - 75 years old and never had a screening colonoscopy: No History of colon or rectal polyps, or CA: No History of IBD, Crohn's disease or UC: No History of abdominal radiation therapy as a child: No - Relative: 1 with colon or rectal CA, or polyps at age 60 or younger: No Colon or rectal CA diagnosed at age 45 or younger: No Multiple relatives with colon or rectal CA: No - Outcome: Screening Result: Negative Screen
[2018-02-10] MEDS ORDERED: ASPIRIN 81 MG CHEWABLE TABLETS PO ONE (03:28)
[2018-02-10] MEDS ORDERED: ASPIRIN 81 MG CHEWABLE TABLETS ONE (03:56)
--- NOTE | 2018-02-10 09:34 | EKG ---
Test Reason : Blood Pressure : / mmHG Vent. Rate : 055 BPM Atrial Rate : 055 BPM P-R Int : 138 ms QRS Dur : 090 ms QT Int : 442 ms P-R-T Axes : 067 007 055 degrees QTc Int : 422 ms SINUS BRADYCARDIA OTHERWISE NORMAL ECG WHEN COMPARED WITH ECG OF 17-JAN-2018 20:53, NO SIGNIFICANT CHANGE WAS FOUND Confirmed by LINDA DELGADO MD ([id number]) on 02/10/2018 9:34:07 AM Referred By: Confirmed By:LINDA DELGADO MD
[2018-02-10] MEDS ORDERED: metoPROLOL SUCCINATE 25 MG TAB.SR.24H (FP) PO SCH ×2 (09:45→22:00)
--- NOTE | 2018-02-10 10:28 | PN ---
Progress Note, Physician Chief Complaint: Pt lying in bed in no acute distress. Reports she had elevated BPs at home yesterday 190s/110s with symptoms of dizziness, lightheadedness and mild nausea. Denies fall, or the feeling as the room was spinning. Reports it didn't feel like her vertigo episodes in the past. She currently denies any symptoms of chest pain, sob, n/v/d, or weakness. Toprol was added 2 weeks ago for adequate BP control. She reports her BPs have been controlled until yesterday. She reports she had an echo and carotid us within last month which were wnl. She expresses she does not have a veneer sorter and prefers to see here considering her symptoms yesterday. - Current Medication List Current Medications: Active Medications Amlodipine Besylate (Norvasc -) 5 mg PO DAILY OVIDIO Atorvastatin Calcium (Lipitor -) 10 mg PO HS OVIDIO Losartan Potassium (Cozaar -) 100 mg PO DAILY OVIDIO Metoprolol Succinate (Toprol Xl -) 25 mg PO HS OVIDIO Non-Formulary Medication (Bimatoprost [Lumigan]) 1 drop IO DAILY OVIDIO - Objective Vital Signs: Vital Signs Temperature 97.2 F L 02/10/18 07:00 Pulse Rate 62 02/10/18 07:00 Respiratory Rate 19 02/10/18 07:00 Blood Pressure 138/78 02/10/18 07:00 O2 Sat by Pulse Oximetry (%) 99 02/09/18 22:27 Constitutional: Yes: Well Nourished, No Distress Cardiovascular: Yes: WNL, Regular Rate and Rhythm. No: Gallop, Murmur Respiratory: Yes: WNL, Regular, CTA Bilaterally. No: Accessory Muscle Use, SOB , Tachypnea Gastrointestinal: Yes: WNL, Normal Bowel Sounds, Soft. No: Distention, Tenderness Genitourinary: Yes: WNL Musculoskeletal: Yes: WNL Extremities: Yes: WNL Edema: No Neurological: Yes: WNL, Alert, Oriented Psychiatric: Yes: WNL, Alert, Oriented Labs: CBC, BMP 02/09/18 23:10 02/09/18 23:10 INR, PTT INR 0.94 (0.82-1.09) 02/09/18 23:10 - ....Imaging Chest X-ray: Report Reviewed Cat Scan: Report Reviewed MRI: Report Reviewed EKG: Report Reviewed Problem List - Problems (1) Lightheadedness Assessment/Plan: pt reports episode of lightheadedness/dizziness which resolved yesterday BPs 190s/110s at home when checked toprol started 2 weeks ago by PCP suspect BB intolerance, hypotension/bradycardia orthostatics ordered ekg-bradycardia MRI neg Head CT neg echo/carotids recently done outpt, neg cardiology/neuro consulted PT ordered Code(s): R42 - DIZZINESS AND GIDDINESS (2) Dizziness Assessment/Plan: as above Code(s): R42 - DIZZINESS AND GIDDINESS (3) Hypertension Assessment/Plan: controlled here losartan, amlodipine toprol added 2 weeks ago Code(s): I10 - ESSENTIAL (PRIMARY) HYPERTENSION Qualifiers: Hypertension type: essential hypertension Qualified Code(s): I10 - Essential (primary) hypertension (4) Glaucoma Assessment/Plan: chronic continue lumigan Code(s): H40.9 - UNSPECIFIED GLAUCOMA Qualifiers: Primary angle closure glaucoma type: chronic (5) Hyperlipidemia Assessment/Plan: chronic continue statin Code(s): E78.5 - HYPERLIPIDEMIA, UNSPECIFIED Assessment/Plan Dispo: Home pending cardiology/neuro clearance
[2018-02-10] MEDS: amLODIPine BESYLATE 5 MG TABLET (FP) PO SCH ×2 (12:00→12:23)
[2018-02-10] MEDS: LOSARTAN POTASSIUM 50 MG TABLET (FP) PO SCH (12:00)
[2018-02-10] MEDS ORDERED: LOSARTAN POTASSIUM 25 MG TABLET ONE (12:10)
[2018-02-10] MEDS ORDERED: amLODIPine BESYLATE 5 MG TABLET (FP) ONE (12:11)
--- NOTE | 2018-02-10 17:29 | CON.CARD ---
Cardiology Consult (text) - Consultation Consultation Note: CC: hypertension/ab gait 84 year old female with a past medical history of HTN, HPL, vertigo, mvp who p/ w htn and abnormal gait. She states that over the past few years her bp has had a tendency to spike into the 190's, although recently it is occurring more frequently. Last week toprol was added to her regimen. she states during these episodes of htn she notices a fullness in her ears and pressure discomfort in her head. When her bp is not very elevated it can range from 110's - 130's. Recent office echo and carotid u/s, overall unremarkable. tsh from 2 weeks ago was wnl. Yesterday when returning home from a meeting she began experiencing her typical sx's of high blood pressure as mentioned above. However, the sx's were more intense and she also noted that she had an abnormal gait and was swaying from side to side, could not walk straight. Sx's were not similar to prior vertigo sx's) At baseline she is active and independent. Went bowling without difficulty on the day she had sx's. Her sx' s of abnormal gait persisted until arriving at the ER. The pressure discomfort in her head lasted until she fell asleep last night. She awoke without these presenting sx's, but states she awoke significantly fatigued, slowly improving throughout the day. Ambulated today without recurrence of unsteadiness. On Ems arrival sbp's noted to be 150's, HR 80's. However, she states her sbp's were 190's when checked on her home machine no cp, sob, palps, orthopnea, pnd, le edema, bleeding no f/c/s, n/v/d, rashes, visual disturbances, cough, congestion. s/p losartan 100 mg daily this morning (home dose) and asa 325 mg/day. pmhx/pshx: per hpi social hx: Former smoker (QUIT > 20 YRS AGO) family hx: brother with ppm. ros: per hpi. Ambulatory Orders Amlodipine Besylate 5 mg PO DAILY 01/17/18 Atorvastatin Ca [Lipitor] 10 mg PO HS 01/17/18 Bimatoprost [Lumigan] 1 drop IO DAILY 01/17/18 Losartan Potassium 100 mg PO DAILY 01/17/18 Metoprolol Succinate 25 mg PO PRN 01/17/18 Meclizine HCl [Antivert -] 25 mg PO TID PRN 02/10/18 Timolol [Betimol] 1 drop OU BID 02/10/18 Current Medications Amlodipine Besylate (Norvasc -) 5 mg PO 1800 OVIDIO Atorvastatin Calcium (Lipitor -) 10 mg PO HS OVIDIO Losartan Potassium (Cozaar -) 100 mg PO DAILY OVIDIO Last Admin: 02/10/18 12:00 Dose: 100 mg Metoprolol Succinate (Toprol Xl -) 25 mg PO HS [facility] Non-Formulary Medication (Bimatoprost [Lumigan]) 1 drop IO DAILY [facility] Vital Signs - 24 hr 02/09/18 02/10/18 02/10/18 22:27 07:00 12:04 Temperature 97.9 F 97.2 F L 97.3 F L Pulse Rate 64 Pulse Rate [ 62 64 Right Radial] Respiratory 18 19 16 Rate Blood Pressure 153/99 Blood Pressure 138/78 106/59 [Left Arm] O2 Sat by Pulse 99 97 Oximetry (%) 02/10/18 02/10/18 13:45 15:16 Temperature 97.4 F L Pulse Rate 58 L Pulse Rate [ Right Radial] Respiratory 18 18 Rate Blood Pressure 112/7 Blood Pressure [Left Arm] O2 Sat by Pulse 97 Oximetry (%) Intake & Output 02/08/18 02/09/18 02/10/18 02/11/18 07:59 07:59 07:59 07:59 Weight 140 lb 131 lb 8 oz nad, calm jvd flat, neck supple dry rales at bases, nl effort rrr nl s1, s2 no mrg + bs soft nt nd, no hsm ext without e/c/c no jaundice, diaphoresis aaox3 CBC, BMP 02/09/18 23:10 02/09/18 23:10 Laboratory Tests 02/09/18 23:10 Total Bilirubin 0.4 D AST 20 ALT 18 Alkaline Phosphatase 89 Troponin I < 0.02 Albumin 4.1 ekg: sb 55 bpm . nl intervals. no ischemic changes. tele: sr brain mri: moderate atrophy, chronic microvascular ischemic disease no acute pathology. echo 01/2018: sb 56 bpm. small lv cavity, nl lv fn. E, A reversal. nl rv size/ fn. dynamic ias. 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 mod tr. mild-mod phtn. small ivc. carotid u/s 01/2018: wnl. A/P 84 year old female with a past medical history of HTN, HPL, mvp, vertigo who p /w htn and abnormal gait. ab gait/dizziness - brain mri without acute pathology, neuro c/s pending. - ce's neg x 1. ekg without ischemic changes. no anginal sx's. - recent echo overall wnl. Had small borderline hyperdynamic cavity with small ivc. may be volume depleted --> check orthostatic vitals. - bp control as mentioned below - monitor for arrhythmia or bradyarrhythmia on tele. - patient with dry rales on exam, consider checking O2 sats with ambulation. htn - would stop beta shavonne as it may be worsening bradycardia, can consider a trial of low dose bid hydralazine if a 3rd agent is needed. - bp labile, would recommend compression stockings. currently on the lower end on losartan alone. resume home norvasc if sbp's > 120. -
[2018-02-10] MEDS ORDERED: amLODIPine BESYLATE 5 MG TABLET (FP) PO SCH (18:00)
[2018-02-10] MEDS ORDERED: LATANOPROST 0.005% OPHTH SOLN 2.5ML BOTTLE OU SCH (20:15)
--- NOTE | 2018-02-10 20:21 | CONSULT ---
Consult - text type - Consultation Consultation Note: NEUROLOGY CONSULTATION is greatly appreciated. Events , CT and MRI reviewed. Discussed with RN. Patient examined with her son at the bedside. This 87 yo RH woman lives alone. PMH si for HTN and high cholesterol for which she takes amlodipine, atorvastatin , losartan, metoprolol (25 mg). Seen by me 8 or 10 years ago after a bout of severe positional vertigo associated with decreased hearing on the left. The severe vertigo has not recurred but she does get a "whoosy feeling" when she rolls to the right or turns her head to the right. Over the last 6-8 months she has had recurrent episode of right sided head and facial pain associated with high blood pressure. These begin suddenly over the right occipital region and spread to become severe right hemicranial headaches involving the right orbital region and the cheek. Whenever she feels these headaches she checks her BP and it is elevated. The headaches last 1-2 hours and when they resolve the BP returns to normal. She denies N, V, photophobia, etc. but does have a "foggy feeling in her head" with the headaches as well as unsteady gait. Curiously, she has noted that the headaches can be brought on by eating foods preserved with "sulfites." + FH of migraines in her grandson. CT of head and MRI (reviewed): Normal. Scattered microvascular changes. DINA: Normal. No bruits. BP 133/50 (p=62)flat; 138/82 (p=64) sitting; standing 128/70 (p=74). NEURO: MS/Speech: Normal CN II-XII: Decreased hearing on left. Otherwise normal without nystagmus. Motor: No drift or tremor. Normal strength, tone and reflexes except decreased AJ's. Toes downgoing. Coord: No FTN dystaxia Sensory: Reduced vibration in feet. Normal at the ankles. Romberg - Gait: Normal IMP: Essentially normal neurological exam. Migraine headaches. I would consider that the elevated BP is DUE to the pain, rather than the cause. No significant orthostasis. Chronic labyrinthitis. SUGGEST: Change Metoprolol to Nadolol (40 mg) for improved migraine prophylaxis. Check ESR, CRP to r/o temporal arteritis. Continue orthostatic BP's. Neuro f/u as out patient. Thank you very much, Randall Villareal MD
[2018-02-10] MEDS ORDERED: TIMOLOL 0.25% OPHTHALMIC SOL 5 ML BOTTLE OD SCH (22:00)
[2018-02-10] MEDS ORDERED: ATORVASTATIN CA 10 MG TABLET (FP) PO SCH (22:00)
[2018-02-11 07:23] LABS: HEMATOCRIT 37.1 % (32.4-45.2); HEMOGLOBIN 12.6 GM/dL (10.7-15.3); LYMPH % 30.6 % (8-40); MCH 31.7 pg (25.7-33.7); MCHC 33.9 g/dl (32.0-36.0); MEAN CELL VOLUME 93.5 fl (80-96); MEAN PLT VOLUME 8.3 fl (7.5-11.1); MONO % 10.2 % (3.8-10.2); NEUT % 55.2 % (42.8-82.8); PLATELET COUNT 133 K/MM3 (134-434); RBC 3.97 M/mm3 (3.60-5.2); RDW 14.4 % (11.6-15.6); WHITE BLOOD COUNT 3.8 K/mm3 (4.0-10.0)
[2018-02-11 07:40] LABS: ANION GAP 4 (8-16); BLOOD UREA NITROGEN 13 mg/dL (7-18); CALCIUM 8.8 mg/dL (8.5-10.1); CHLORIDE 107 mmol/L (98-107); CO2 29 mmol/L (21-32); CREATININE 0.9 mg/dL (0.55-1.02); GLUCOSE,RANDOM 81 mg/dL (74-106); MAGNESIUM 2.2 mg/dL (1.8-2.4); PHOSPHOROUS 2.9 mg/dL (2.5-4.9); POTASSIUM 4.5 mmol/L (3.5-5.1); SODIUM 140 mmol/L (136-145)
--- NOTE | 2018-02-11 08:50 | PN ---
Progress Note, Physician Chief Complaint: dizzy/off balance History of Present Illness: no more dizziness/dysequilibrium. has had SAME SX over the years, did vestibular exercises at home from neuro and ENT which resolved the sxs no cp, sob, palpitations, presyncope - Current Medication List Current Medications: Active Medications Amlodipine Besylate (Norvasc -) 5 mg PO 1800 [facility] Last Admin: 02/10/18 19:31 Dose: Not Given Atorvastatin Calcium (Lipitor -) 10 mg PO HS [facility] Last Admin: 02/10/18 21:43 Dose: 10 mg Latanoprost (Xalatan 0.005% Eye Drops -) 1 drop OU HS [facility] Last Admin: 02/10/18 21:43 Dose: 1 drop Losartan Potassium (Cozaar -) 100 mg PO DAILY [facility] Last Admin: 02/10/18 12:00 Dose: 100 mg Metoprolol Succinate (Toprol Xl -) 25 mg PO HS [facility] Last Admin: 02/10/18 21:44 Dose: 25 mg Timolol Maleate (Timoptic 0.25%) 1 drop OU BID [facility] - Objective Vital Signs: Vital Signs Temperature 97.7 F 02/11/18 06:00 Pulse Rate 57 L 02/11/18 06:00 Respiratory Rate 17 02/11/18 06:00 Blood Pressure 154/76 02/11/18 06:00 O2 Sat by Pulse Oximetry (%) 99 02/10/18 21:00 Constitutional: Yes: Well Nourished, No Distress, Calm Cardiovascular: Yes: Regular Rate and Rhythm, S1, S2. No: Gallop, Murmur Respiratory: Yes: Regular, CTA Bilaterally. No: Accessory Muscle Use, Rales, Wheezes Extremities: No: Cold Edema: No Neurological: Yes: Alert, Oriented Psychiatric: No: Agitated Labs: CBC, BMP 02/11/18 06:22 02/11/18 06:22 INR, PTT INR 0.94 (0.82-1.09) 02/09/18 23:10 Assessment/Plan ekg: sb 55 bpm . nl intervals. no ischemic changes. brain mri: moderate atrophy, chronic microvascular ischemic disease no acute pathology. echo 01/2018: sb 56 bpm. small lv cavity, nl lv fn. E, A reversal. nl rv size/ fn. dynamic ias. 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 mod tr. mild-mod phtn. small ivc. carotid u/s 01/2018: wnl. tele: NSR 50s-60s A/P 84 year old female with a past medical history of HTN, HPL, mvp, vertigo who p /w htn and abnormal gait. ab gait/dizziness - brain mri without acute pathology - neuro input appreciated: chronic labyrinthitis - orthostatic BPs here unremarkable - monitor tele htn - nadolol rec'd by neuro for migraine prophylaxis--to start today - HRs here 50s-60s, doubt bradycardia as etiology of her sx's (which are chronic and vestibular sounding) - observe HR on b-shavonne - bp reasonably controlled here (110s-150s). unclear from hx if bp spiking on its own, or if due to anxiety about her dizzy sx's. also unclear how high it is spiking. would not increase meds for rare bp spikes to 160-170 range if not persistent no further inpatient cardiac w/u is indicated
--- NOTE | 2018-02-11 08:57 | DS ---
Physical Exam: SUBJECTIVE: Patient seen and examined. asymptomatic. states no more episodes of dizzyness since she arrived to hospital. states she occasionally gets a R sided MARQUEZ and when she does she checks her BP and is noted to be elevated. does not get MARQUEZ otherwise. claims medication compliance. denies Cp, SOB, fever, chills, N /V/C/D OBJECTIVE: Vital Signs Period Temp Pulse Resp BP Sys/Sanchez Pulse Ox Last 24 Hr 97.3 F-98 F 57-74 16-18 106-154/7-82 97-99 PHYSICAL EXAM GENERAL: The patient is awake, alert, and fully oriented, in no acute distress. HEAD: Normal with no signs of trauma. EYES: PERRL, extraocular movements intact, sclera anicteric, conjunctiva clear. ENT: Ears normal, nares patent, oropharynx clear without exudates, moist mucous membranes. NECK: Trachea midline, full range of motion, supple. LUNGS: Breath sounds equal, clear to auscultation bilaterally, no wheezes, no crackles, no accessory muscle use. HEART: Regular rate and rhythm, S1, S2 without murmur, rub or gallop. ABDOMEN: Soft, nontender, nondistended, normoactive bowel sounds, no guarding, no rebound, no hepatosplenomegaly, no masses. EXTREMITIES: 2+ pulses, warm, well-perfused, no edema. NEUROLOGICAL: Cranial nerves II through XII grossly intact. Normal speech, gait not observed. PSYCH: Normal mood, normal affect. SKIN: Warm, dry, normal turgor, no rashes or lesions noted. LABS Laboratory Results - last 24 hr 02/11/18 02/11/18 06:22 06:22 WBC 3.8 L RBC 3.97 Hgb 12.6 Hct 37.1 MCV 93.5 MCH 31.7 MCHC 33.9 RDW 14.4 Plt Count 133 L MPV 8.3 Neutrophils % 55.2 Lymphocytes % 30.6 D Monocytes % 10.2 Eosinophils % 3.0 D Basophils % 1.0 Sodium 140 Potassium 4.5 Chloride 107 Carbon Dioxide 29 Anion Gap 4 L BUN 13 Creatinine 0.9 Random Glucose 81 Calcium 8.8 Phosphorus 2.9 Magnesium 2.2 HOSPITAL COURSE: Date of Admission:02/10/18 Date of Discharge: 02/11/18 Admitting diagnosis: Dizzyness, HTN urgency PRe hospital course 87 year old female with a past medical history of HTN, HLD, ?MVP, colon polyps, vertigo who presented to the ED after an episode of lightheadedness and unsteady gait at home. She reports that she began having trouble walking and had to hold onto the wall to keep from falling over and then she became lightheaded. The lightheadedness lasted about 15 minutes but she is still having mild unsteady gait with swaying side to side with walking. Subsequent hospital course Tele observation. imaging and labs WNL. noted to be slightly bradycardic at night time. orthostatics negative. symtpoms resolved. evaluated by cardio and neuro. metoprolol switched to nadolol with good response. d/c home. encouraged to check BP daily and whenever having symptoms and record Minutes to complete discharge: 40 Discharge Summary Reason For Visit: DIZZINESS Current Active Problems Dizziness (Acute) Glaucoma (Acute) Hyperlipidemia (Acute) Lightheadedness (Acute) Condition: Stable - Instructions Diet, Activity, Other Instructions: You were admitted to the hospital due to being dizzy. This was likely caused by your elevated blood pressure. Here it has been controlled. Your metoprolol has been switched to nadolol. You received a dose this morning. It is important that you take it at the same time every day. Continue to check your blood pressure every day and whenever your having symptoms (Headache, blurred vision, ringing in the ears, chest pain or difficulty breathing). check your blood pressure at this time and call your doctor Take your cholesterol medication at bedtime as it is more effective at night time follow a low salt diet Follow up with your primary care doctor this upcoming week. Bring with you a log of your blood pressure readings so that further adjustments can be made if necessary Follow up with cardiology in 2 weeks If your symptoms return or develop chest pain return to the hospital. Referrals: Avinash Palmer MD [Staff Physician] - Tierra Ureña MD [Primary Care Provider] - 1 Week Disposition: HOME - Home Medications Comprehensive Discharge Medication List: Ambulatory Orders Amlodipine Besylate 5 mg PO DAILY 01/17/18 Atorvastatin Ca [Lipitor] 10 mg PO HS 01/17/18 Bimatoprost [Lumigan] 1 drop IO DAILY 01/17/18 Losartan Potassium 100 mg PO DAILY 01/17/18 Meclizine HCl [Antivert -] 25 mg PO TID PRN 02/10/18 Timolol [Betimol] 1 drop OU BID 02/10/18 This patient is new to me today: Yes Date on this admission: 02/11/18 Emergency Visit: Yes ED Registration Date: 02/10/18 Care time: The patient presented to the Emergency Department on the above date and was hospitalized for further evaluation of their emergent condition. Critical Care patient: No - Discharge Referral Referred to [facility] Med P.C.: No
[2018-02-11] MEDS: LOSARTAN POTASSIUM 50 MG TABLET (FP) PO SCH (09:49)
[2018-02-11] MEDS ORDERED: NADOLOL 40 MG TABLET (FP) PO SCH (10:00)
[2018-02-11] MEDS ORDERED: TIMOLOL 0.25% OPHTHALMIC SOL 5 ML BOTTLE OU SCH (10:00)
[2018-02-11 10:42] VITALS: TEMP 98.3
[2018-02-11 10:44] VITALS: BP 133/50; PULSE 62
== END 2018-02-11 13:07 | disposition home or self-care (01) ==
LOC: JER 22:01 → JERBED 02-10 01:15 → UNDOADMOB 02-10 01:37 → J4W 02-10 13:29
PROVIDERS: ADMIT Internal Medicine; ATTEND Internal Medicine
DX: R42 Dizziness and giddiness (principal); R26.81 Unsteadiness on feet; I10 Essential (primary) hypertension; E78.5 Hyperlipidemia, unspecified; I34.1 Nonrheumatic mitral (valve) prolapse; H40.9 Unspecified glaucoma; Z88.1 Allergy status to other antibiotic agents; Z88.2 Allergy status to sulfonamides; Z86.010 Personal history of colon polyps
CPT/HCPCS: 36415; 70450-TC; 70551-TC; 71045-TC-FY; 80048; 80053; 81003; 81015; 82550; 83735; 84100; 84484; 85025; 85610; 87086; 93005; 93010; 97116-GP; 97161-GP; 99282-25; G0378

== ENCOUNTER 2018-08-02 18:10 | Emergency (ER) | payer OTHER, MEDICARE ==
--- NOTE | 2018-08-02 18:50 | PDOC ---
Rapid Medical Evaluation Chief Complaint: Foreign Body (FB) Time Seen by Provider: 08/02/18 18:47 Medical Evaluation: Allergies Allergy/AdvReac Type Severity Reaction Status Date / Time levofloxacin [From Levaquin] Allergy Severe Hives Verified 08/02/18 18:47 meperidine HCl [From Demerol] Allergy Severe Hives Verified 08/02/18 18:47 Sulfa (Sulfonamide Allergy Severe Hives Verified 08/02/18 18:47 Antibiotics) [Sulfa(Sulfonamide Antibiotics)] sulfamethoxazole Allergy Severe Hives Verified 08/02/18 18:47 [From Bactrim] trimethoprim [From Bactrim] Allergy Severe Hives Verified 08/02/18 18:47 influenza virus vaccine, AdvReac Mild Verified 08/02/18 18:47 specific Influenza Virus Vaccines AdvReac Mild Verified 08/02/18 18:47 08/02/18 18:48 I have performed a brief in-person evaluation of this patient. The patient presents with a chief complaint of: FB/ earpiece to hearing aids lodged in left ext canal. Pertinent physical exam findings: no drainage or pain. I have ordered the following: nothing The patient will proceed to the ED for further evaluation.
[2018-08-02 18:52] VITALS: BP 151/79; PULSE 80; BMI 25.8
--- NOTE | 2018-08-02 19:05 | PDOC ---
History of Present Illness - General Chief Complaint: Foreign Body (FB) Stated Complaint: FOREIGN OBJECT STUCK IN LT EAR Time Seen by Provider: 08/02/18 18:47 History Source: Patient Exam Limitations: Clinical Condition - History of Present Illness Initial Comments: 08/02/18 19:05 Patient with history of decreased hearing using hearing aids present for evaluation of possible plastic piece of hearing aid stuck in left ear canal. Patient reports she took out the hearing aid and found the plastic piece missing and not sure if was stuck in the left ear or fell on the ground Timing/Duration: unsure Past History - Past Medical History Allergies/Adverse Reactions: Allergies Allergy/AdvReac Type Severity Reaction Status Date / Time levofloxacin [From Levaquin] Allergy Severe Hives Verified 08/02/18 18:47 meperidine HCl [From Demerol] Allergy Severe Hives Verified 08/02/18 18:47 Sulfa (Sulfonamide Allergy Severe Hives Verified 08/02/18 18:47 Antibiotics) [Sulfa(Sulfonamide Antibiotics)] sulfamethoxazole Allergy Severe Hives Verified 08/02/18 18:47 [From Bactrim] trimethoprim [From Bactrim] Allergy Severe Hives Verified 08/02/18 18:47 influenza virus vaccine, AdvReac Mild Verified 08/02/18 18:47 specific Influenza Virus Vaccines AdvReac Mild Verified 08/02/18 18:47 Home Medications: Ambulatory Orders Amlodipine Besylate 5 mg PO DAILY 01/17/18 Atorvastatin Ca [Lipitor] 10 mg PO HS 01/17/18 Bimatoprost [Lumigan] 1 drop IO DAILY 01/17/18 Losartan Potassium 100 mg PO DAILY 01/17/18 Meclizine HCl [Antivert -] 25 mg PO TID PRN 02/10/18 Timolol [Betimol] 1 drop OU BID 02/10/18 Nadolol 40 mg PO DAILY #30 tablet 02/11/18 Anemia: No Asthma: No Cancer: No Cardiac Disorders: Yes (MVP) CVA: No COPD: No CHF: No Dementia: No Diabetes: No GI Disorders: Yes (HX.COLON POLYPS) Disorders: No HTN: Yes Hypercholesterolemia: Yes Liver Disease: No Seizures: No Thyroid Disease: No - Surgical History Abdominal Surgery: No Appendectomy: No Cardiac Surgery: No Cholecystectomy: No Lung Surgery: No Neurologic Surgery: No Orthopedic Surgery: No - Immunization History Immunization Up to Date: Yes - Suicide/Smoking/Psychosocial Hx Smoking History: Unknown if ever smoked Have you smoked in the past 12 months: No If you are a former smoker, when did you quit?: 27 years ago Hx Alcohol Use: No Drug/Substance Use Hx: No Substance Use Type: None Hx Substance Use Treatment: No Review of Systems - Review of Systems Able to Perform ROS?: Yes Is the patient limited Estonian proficient: No HEENTM: Yes: See HPI, Other (foreign body sensation in left ear). No: Eye Pain , Blurred Vision, Tearing, Recent change in vision, Double Vision, Cataracts, Ear Pain, Ocular Prothesis, Ear Discharge, Nose Pain, Nose Congestion, Tinnitus , Nose Bleeding, Hearing Loss, Throat Pain, Throat Swelling, Mouth Pain, Dental Problems, Difficulty Swallowing, Mouth Swelling Respiratory: No: Symptoms reported Cardiac (ROS): No: Symptoms Reported ABD/GI: No: Symptoms Reported *Physical Exam - Vital Signs Last Vital Signs Temp Pulse Resp BP Pulse Ox 80 18 151/79 99 08/02/18 18:50 08/02/18 18:50 08/02/18 18:50 08/02/18 18:50 - Physical Exam Comments: 08/02/18 19:08 GENERAL: Well developed, well nourished. Awake and alert. No acute distress. HEENT: No foreign body found in bilateral ear canal. Visualization done by multiple providers and found no ear piece in left ear canal. Normocephalic, atraumatic. PERRLA, EOMI. No conjunctival pallor. Sclera are non-icteric. Moist mucous membranes. Oropharynx is clear. CARDIOVASCULAR: Regular rate and rhythm. No murmurs, rubs, or gallops. Distal pulses are 2+ and symmetric. PULMONARY: No evidence of respiratory distress. Lungs clear to auscultation bilaterally. No wheezing, rales or rhonchi. ABDOMINAL: Soft. Non-tender. Non-distended. No rebound or guarding. No organomegaly. Normoactive bowel sounds. NEUROLOGICAL: Alert, awake, appropriate. Gait is normal without ataxia. PSYCHIATRIC: Cooperative. Good eye contact. Appropriate mood General Appearance: Yes: Nourished, Appropriately Dressed. No: Apparent Distress HEENT: positive: EOMI, ALFRED, Normal ENT Inspection, TMs Normal Medical Decision Making - Medical Decision Making 08/02/18 19:09 Patient with no sick the past medical history and decreased hearing using hearing aid present for evaluation of possible piece of hearing aid stuck in left ear canal. Exams shows no foreign body in the ear canals. Patient advised to follow up with ENT if persistent sensation of foreign body left ear canal. Patient advised to follow up here in a specialist to replace missing piece of hearing aid. *DC/Admit/Observation/Transfer Diagnosis at time of Disposition: Foreign body sensation in left ear canal - Discharge Dispostion Disposition: HOME Condition at time of disposition: Stable Decision to Admit order: No - Referrals Referrals: Elbert Kauffman MD [Staff Physician] - - Patient Instructions Additional Instructions: No foreign body was seen in left ear canal. Follow-up will referred ENT if continues foreign body sensation in left ear - Post Discharge Activity
== END 2018-08-02 19:10 | disposition home or self-care (01) ==
LOC: JERFT 18:10
DX: H93.8X9 Other specified disorders of ear, unspecified ear (principal)
CPT/HCPCS: 99281-25